=== PATIENT | male | born 1970 | race Caucasian/White ===

== ENCOUNTER → 2021-01-24 10:21 | Outpatient (CLI) | payer OTHER, SELFPAY ==
[2021-01-24 12:09] LABS: Hematocrit 45.7 % (41-53); Hemoglobin 15.4 g/dL (13.5-17.5); Mean Corpuscular HGB Conc 33.7 % (30-36); Mean Corpuscular Hemoglobin 28.9 PG (26-34); Mean Corpuscular Volume 85.9 fL (80-100); Platelet Count 210 X10^3/uL (150-400); Red Blood Cell Count 5.32 X10^6/uL (4.5-5.9); Red Cell Distribution Width 14.9 % (11.6-14.8); White Blood Cell Count 6.8 X10^3/uL (4.5-11.0)
[2021-01-24 12:21] LABS: BUN Creatinine Ratio 17.7 (6-22); Blood Urea Nitrogen 14 mg/dL (9-20); Calcium 9.8 mg/dL (8.4-10.2); Carbon Dioxide 26 mmol/L (22-32); Chloride 103 mmol/L (98-107); Cholesterol 263 mg/dL (140-199); Estimated Glomerular Filt Rate > 60.0 mL/min (>60); Glucose 109 mg/dL (70-100); HDL Cholesterol 63 mg/dL (40-60); HEMOLYSIS < 15 (0-50); LDL Cholesterol Calculated 182 mg/dL (<100); Potassium 4.5 mmol/L (3.4-5.1); Sodium 138 mmol/L (137-145); Triglycerides 91 mg/dL (35-150)
[2021-01-24 13:54] LABS: TSH w/ Reflex to FT4 4.84 uIU/mL (0.47-4.68)
[2021-01-24 14:31] LABS: Free T4, Direct Thyroxine 0.97 ng/dL (0.78-2.19)
[2021-01-24 14:54] LABS: Creatinine Urine Random 175.9 mg/dL
[2021-01-24 14:57] LABS: Microalbumi Creatinin Ratio Ur 8.5 ug/mg CR (<30); Microalbumin Urine Random 1.5 mg/dL (0-1.6)
[2021-01-24 15:00] LABS: Vitamin D 25 Hydroxy (D3) 19.3 ng/mL (30.0-100.0)
== END ==
PROVIDERS: PCP Student in an Organized Health Care Education/Training Program; Referring Provider Student in an Organized Health Care Education/Training Program; Visit Provider Student in an Organized Health Care Education/Training Program
DX: I10 Essential (primary) hypertension (principal); Z13.220 Encounter for screening for lipoid disorders; E55.9 Vitamin D deficiency, unspecified
CPT/HCPCS: 36415; 80048; 80061; 82043; 82306; 82570; 84439; 84443; 85027

== ENCOUNTER → 2021-06-04 14:36 | Outpatient (CLI) | payer OTHER, SELFPAY ==
--- NOTE | 2021-06-04 14:36 | DI.ECHO.S_ITS ---
[place] [facility]---------+ [facility] +---------+ : : [address] : : : : [id number] : : : : Phone: [phone]---------+ Echocardiogram Report + + :Name: AURELIO LYLES Study Date: 06/04/2021 Height: 70 in : :[facility] ReadingLocation: Weight: 205 lb : : Gender: Male BSA: 2.1 m2 : :: 1970 Age: 50 yrs BP: 159/101 mmHg: :Reason For Study: NEW HYPERTENSION : :Ordering Physician: JOSELO, : :MARTINA Performed By: Angeles Mace : :Referring: MARTINA JOSUE : + + Interpretation Summary Normal left ventricle size with ejection fraction 65-70%. Borderline dilated right ventricle with normal right ventricular systolic function. No valvular abnormality. Procedure: A two-dimensional transthoracic echocardiogram with color flow and Doppler was performed. The study quality was technically adequate. There is no prior echocardiogram noted for this patient. The patient was in sinus rhythm with heart rates between 72-80 bpm during the exam. Left Ventricle: The left ventricle is normal in size and wall thickness. The ejection fraction is estimated to be 65-70%. There are no focal wall motion abnormalities. Right Ventricle: The right ventricle is borderline dilated. The right ventricular systolic function is normal. Atria: The left atrial size is normal. Right atrial size is normal. There is no Doppler evidence for an interatrial shunt. Mitral Valve: The mitral valve is normal in structure and function. There is trace mitral regurgitation. Aortic Valve: The aortic valve is trileaflet. The aortic valve opens well. There is no aortic valve stenosis. No aortic regurgitation is present. Tricuspid Valve: The tricuspid valve is normal in structure and function. There is trace tricuspid regurgitation. Pulmonic Valve: The pulmonic valve leaflets are thin and pliable; valve motion is normal. There is trace pulmonic regurgitation. Great Vessels: The aortic root is normal size. The dimensions of the ascending aorta are normal. The inferior vena cava was not well visualized. Pericardium/ Pleura There is no pericardial effusion. There is no pleural effusion. MMode/2D Measurements & Calculations LVIDd: 4.8 cm LVOT diam: 2.1 cm LVIDs: 2.8 cm Ao root diam: 3.3 cm FS: 41.1 % asc Aorta Diam: 3.0 cm IVSd: 0.92 cm Ao Arch Diam (Prox Trans): 3.3 cm LVPWd: 0.85 cm LV yuen. diameter/BSA (cm/m^2): 2.3 LV sys. diameter/BSA (cm/m^2): 1.3 LA A2 area: 18.0 cm2 RA long axis: 4.5 cm LA A4 area: 15.9 cm2 RA area: 15.9 cm2 LA length (vol): 4.9 cm RA vol: 47.4 ml LA vol: 49.6 ml RA : 22.5 ml/m2 LA vol index: 23.5 ml/m2 RVD1 (basal): 4.1 cm TAPSE: 2.7 cm Doppler Measurements & Calculations Ao V2 max: 156.1 cm/sec LVOT Max Michael: 131.4 cm/sec Ao V2 mean: 105.6 cm/sec LV V1 max P.9 mmHg Ao max P.7 mmHg LV V1 VTI: 23.5 cm Ao mean P.1 mmHg YOEL(I,D): 2.6 cm2 Ao V2 VTI: 30.9 cm YOEL(V,D): 2.8 cm2 sev ratio: 0.76 OYEL indexed to BSA (cm^2/m^2): 1.2 MV E max michael: 83.1 cm/sec PA V2 max: 106.5 cm/sec MV A max michael: 62.7 cm/sec PA V2 mean: 71.0 cm/sec MV E/A: 1.3 PA mean P.3 mmHg Med Peak E' Michael: 9.7 cm/sec E/E' med: 8.6 Lat Peak E' Michael: 12.1 cm/sec E/E' lat: 6.8 E/e' average: 7.7 MV dec time: 0.21 sec SV(LVOT): 79.4 ml Electronically signed by: Coral Cole on Reading Physician:06/04/2021 04:06 PM
== END ==
PROVIDERS: PCP Student in an Organized Health Care Education/Training Program; Referring Provider Student in an Organized Health Care Education/Training Program; Visit Provider Student in an Organized Health Care Education/Training Program
DX: I10 Essential (primary) hypertension (principal)
CPT/HCPCS: 93306

== ENCOUNTER → 2021-07-02 09:08 | Outpatient (CLI) | payer OTHER, SELFPAY ==
[2021-07-02 10:39] LABS: COVID19 -Nasal RAPID Negative (Negative)
== END ==
PROVIDERS: PCP Student in an Organized Health Care Education/Training Program; Visit Provider Surgery
DX: Z01.812 Encounter for preprocedural laboratory examination (principal); Z20.822 Contact with and (suspected) exposure to COVID-19
CPT/HCPCS: 87635; C9803

== ENCOUNTER 2021-07-03 08:19 | Day surgery (SDC) | payer OTHER, SELFPAY ==
[2021-07-03] VITALS (7 sets, daily range): BP systolic 103–140; BP diastolic 62–89; PULSE 60–73; RESP 10–16; TEMP 36.2–36.8; O2SAT 92–98; BMI 28.5
--- NOTE | 2021-07-03 | PATH_ITS ---
[facility] Accession Number: [id number] . 01 Material submitted: . PART A: rectum - RECTUM PART B: colon - TRANSVERSE COLON . 02 Diagnosis: A. Rectum, Biopsy: Hyperplastic rectal mucosa. Negative for dysplasia and malignancy. . B. Transverse Colon, Biopsy: Tubular adenoma. Benign lymphoid aggregate. MRV 07/06/2021 1158 Local . 02 Electronically signed: . Diamond Ritter MD, Pathologist NPI- [id number] . 01 Gross description: . Part A: RECTUM: Received in formalin are 2 fragment(s) of mosher, soft tissue measuring 0.1 x 0.1 x 0.1 cm to 0.3 x 0.3 x 0.3 cm submitted entirely in 1 cassette(s) Part B: TRANSVERSE COLON: Received in formalin are 2 fragment(s) of mosher, soft tissue measuring 0.1 x 0.1 x 0.1 cm to 0.5 x 0.5 x 0.4 cm submitted entirely in 1 cassette(s) /DEMETRIO 07/05/2021 0151 Local . 02 Pathologist provided ICD-10: D12.3 . 02 CPT . 992033, [id number] Specimen Comment: A courtesy copy of this report has been sent to [phone] Performed at: 01 [facility] Cytology [address] [facility] [place], [place], [place] [id number] MD Spencer Herman MD Phone: [phone] Performed at: 02 [facility] [address] [place], [place] [id number] MD Diamond Ritter MD Phone: [phone]
[2021-07-03] MEDS: LACTATED RINGERS 1,000 ML 200 ML IV (08:45)
--- NOTE | 2021-07-03 08:50 | PM.HP.1 ---
History of Present Illness History of Present Illness Date Patient Seen: 07/03/21 Time Patient Seen: 08:50 Chief complaint: SDC Narrative: The patient presents for colorectal sreening. They have never had any previous examination for such. No personal or family history of colon cancer. On further history denies any recent gastrointestinal symptoms. No nausea, vomiting, abdominal pain, loss of appetite, unexplained weight loss, change in bowel habits, diarrhea, constipation, melena, hematochezia, or bright red blood per rectum. Patient History Family & Social History Social History: household members spouse Tobacco & Substance use: Smoking Status Former smoker alcohol intake never Substance Use Type does not use Meds Home Medications and Allergies Home Medications Medication Instructions Recorded Confirmed Type lisinopril 20 mg tablet 20 mg PO DAILY #90 tab 02/28/21 07/03/21 Rx Allergies Allergy/AdvReac Type Severity Reaction Status Date / Time No Known Drug Allergies Allergy Unverified 01/24/21 09:39 Exam Vital Signs (past 8 hours): - 07/03/21 08:38 Temperature 97.8 F Pulse Rate 60 Respiratory Rate 14 Blood Pressure 140/89 Pulse Oximetry 98 Oxygen Delivery Method Room Air Narrative Exam Narrative: GENERAL: Adult male in no apparent distress HEENT: No scleral icterus CV: Regular rate, no peripheral edema LUNGS: No increased work of breathing. Patient speaks in full sentences without oxygen support. ABDOMEN: Soft, non-tender, non-distended NEURO: Nonfocal, normal strength throughout, SKIN: Warm and dry Assessment & Plan Assessment & Plan narrative: The patient requires colorectal screening and colonoscopy is recommended. Technical details were discussed. Risks, benefits, alternatives explained. Risks including but not limited to myocardial infarction, aspiration, bleeding, pain, missed lesion, incomplete examination, need for further radiographic studies, colonic perforation, and need for major abdominal surgery were discussed. All questions were answered to their satisfaction, and they are in agreement with this plan. Time Spent With Patient Critical Care time: I spent a total of [] minutes of critical care time on this patient's care today; this time is exclusive of procedural time.
[2021-07-03] MEDS: fentaNYL 250 MCG/5 ML INJ IV (08:53)
[2021-07-03] MEDS: MIDAZOLAM 5 MG/5 ML VIAL IV (08:54)
--- NOTE | 2021-07-03 09:16 | PM.OP.COLON ---
Operative Date/Time/Diagnoses Date of procedure: 07/03/21 Time of procedure: 09:16 Pre-op diagnosis: Screening colonoscopy Post-op diagnosis: same Procedure & Clinicians Study performed: Colonoscopy Same procedure as scheduled: Yes Indications: Screening Surgeon: Javid Santoyo Procedure Notes Procedure in detail: Medications: Conscious sedation using 9mg IV midazolam and 150 mcg IV of fentanyl The history and physical was performed/updated and the patient is ASA class is 2. The procedure was discussed in detail with the patient. Potential risks complications including infection, bleeding, missed diagnosis, perforation, need for surgery, and were explained. Their questions were answered and informed consent was obtained. Patient was brought to the procedure room and placed standard monitoring equipment. The patient's vital signs were monitored continuously throughout the entire procedure. Prior to starting time-out was performed. The patient was placed in the left lateral recumbent position. Procedural sedation was administered. Examination began with a thorough inspection of the perianal area there was no evidence of fissures, fistulae, external hemorrhoids or cutaneous malignancy. The colonoscopy scope was then placed into the anal canal and was advanced to the cecum, which was identified by the ileocecal valve, the appendiceal orifice and the confluence of the taenia. The scope was then slowly withdrawn examining colon thoroughly in all directions, irrigating it of any residual stool. FINDINGS 1. Rectal polyp 5 mm removed with biopsy forceps 2. Transverse polyp 5 mm removed with biopsy forceps The patient tolerated the procedure well. They will be discharged once criteria are met. The prep was of good/excellent quality. The withdrawl time was 6 minutes. The sedation time was 14 minutes. Specimen(s): other (Rectal and transverse colon polyps) Complications: none Impression: Colonic polyps x2 Post-procedure Recommendations: Colonoscopy in 3 years Disposition: same day surgery
--- NOTE | 2021-07-03 10:47 | SUR.PHASEII ---
Patient was wheeled out by Mary BANDA, discussed the discharged plan with the patient and spouse via phone
== END 2021-07-03 10:09 | disposition home or self-care (01) ==
PROVIDERS: PCP Student in an Organized Health Care Education/Training Program; Referring Provider Surgery; Visit Provider Surgery
PROC: 0DJD8ZZ Inspection of Lower Intestinal Tract, Via Natural or Artificial Opening Endoscopic (ICD-10-PCS; CPT 45378; principal; 2021-07-03 09:15)
DX: Z12.11 Encounter for screening for malignant neoplasm of colon (principal); D12.3 Benign neoplasm of transverse colon
CPT/HCPCS: 45380; 99152; J2250; J3010

== ENCOUNTER → 2022-08-07 16:34 | Outpatient (CLI) | payer OTHER, SELFPAY ==
--- NOTE | 2022-08-07 16:37 | DI.RAD.S_ITS ---
PROCEDURE: XR CHEST 2V INDICATIONS: Cough TECHNIQUE: 2 views of the chest were acquired. COMPARISON: None. FINDINGS: Surgical changes and devices: None. Lungs and pleura: Lungs are clear. No pleural effusions or pneumothorax. Mediastinum: Mediastinal contours are normal. Heart size is normal. Bones and chest wall: No suspicious bony abnormalities. Soft tissues appear unremarkable. IMPRESSION: No acute cardiopulmonary process demonstrated radiographically. Dictated by: Senthil Roberson M.D. on 08/07/2022 at 17:02 Approved by: Senthil Roberson M.D. on 08/07/2022 at 17:02
== END ==
PROVIDERS: PCP Student in an Organized Health Care Education/Training Program; Referring Provider Nurse Practitioner Family; Visit Provider Nurse Practitioner Family
DX: R05.9 Cough, unspecified (principal)
CPT/HCPCS: 71046

== ENCOUNTER → 2022-10-24 09:54 | Outpatient (CLI) | payer OTHER, SELFPAY ==
[2022-10-24 10:38] LABS: Alanine Aminotransferase 95 IU/L (<50); Albumin 4.4 g/dL (3.5-5.0); Albumin Globulin Ratio 1.2 (1.0-2.8); Alkaline Phosphatase 127 U/L (38-126); Aspartate Aminotransferase 40 IU/L (17-59); BUN Creatinine Ratio 18.2 (6-22); Bilirubin Total 0.4 mg/dL (0.2-1.3); Blood Urea Nitrogen 12 mg/dL (9-20); C-Reactive Protein Quant 1.9 mg/dL (<1.0); Calcium 9.5 mg/dL (8.4-10.2); Carbon Dioxide 23 mmol/L (22-32); Chloride 104 mmol/L (98-107); Creatine Kinase 64 U/L (55-170); Estimated Glomerular Filt Rate > 60 mL/min (>60); Globulin 3.6 g/dL (1.7-4.1); Glucose 109 mg/dL (70-100); HEMOLYSIS < 15 (0-50); Potassium 4.5 mmol/L (3.4-5.1); Sodium 138 mmol/L (137-145)
[2022-10-24 10:45] LABS: Hematocrit 42.6 % (41-53); Hemoglobin 14.6 g/dL (13.5-17.5); Mean Corpuscular HGB Conc 34.2 % (30-36); Mean Corpuscular Hemoglobin 27.3 PG (26-34); Mean Corpuscular Volume 79.9 fL (80-100); Platelet Count 264 X10^3/uL (150-400); Red Blood Cell Count 5.34 X10^6/uL (4.5-5.9); Red Cell Distribution Width 13.9 % (11.6-14.8); White Blood Cell Count 7.3 X10^3/uL (4.5-11.0)
[2022-10-24 10:56] LABS: Rheumatoid Factor 410.2 IU/mL (<12.0)
[2022-10-24 11:09] LABS: TSH w/ Reflex to FT4 2.96 uIU/mL (0.47-4.68)
[2022-10-24 11:34] LABS: Erythrocyte Sedimentation Rate 45 MM/HR (0-15)
== END ==
PROVIDERS: PCP Pediatrics; Referring Provider Nurse Practitioner Family; Visit Provider Nurse Practitioner Family
DX: E03.8 Other specified hypothyroidism (principal); M25.50 Pain in unspecified joint; M79.10 Myalgia, unspecified site; R63.5 Abnormal weight gain
CPT/HCPCS: 36415; 80053; 82550; 84443; 85027; 85651; 86140; 86430

== ENCOUNTER → 2022-10-24 16:16 | Outpatient (CLI) | payer OTHER, SELFPAY ==
--- NOTE | 2022-10-24 16:18 | DI.RAD.S_ITS ---
PROCEDURE: XR HAND RT MIN 3V INDICATIONS: inflammatory joint TECHNIQUE: 3 views of the hand(s) acquired. COMPARISON: None. FINDINGS: Bones: No fractures or dislocations. Carpal bones are normally aligned. No suspicious bony lesions. Nonspecific subchondral lucency in the 1st carpal bone may potentially indicate a inflammatory arthritis. No periarticular osteopenia. There is also a nonspecific subchondral lucency in the head of the 2nd metacarpal, which may potentially be related to an inflammatory arthritis. There is also a subtle subchondral lucency in the head of the proximal phalanx of the thumb which may also be related to an inflammatory arthritis. Soft tissues: No suspicious soft tissue calcifications. IMPRESSION: Multiple nonspecific subchondral lucencies may potentially indicate the presence of an inflammatory arthritis. Dictated by: Efren Bullard M.D. on 10/24/2022 at 23:03 Approved by: Efren Bullard M.D. on 10/24/2022 at 23:05
--- NOTE | 2022-10-24 16:18 | DI.RAD.S_ITS ---
PROCEDURE: XR HAND LT MIN 3V INDICATIONS: inflammatory joint TECHNIQUE: 3 views of the hand(s) acquired. COMPARISON: None. FINDINGS: Bones: No fractures or dislocations. Carpal bones are normally aligned. No suspicious bony lesions. There is a benign bubbly lesion of the lateral cortex of the proximal shaft of the middle phalanx of the 3rd finger, at a distance from the joint, likely unrelated to inflammatory arthritis. There is a very subtle subchondral lucency in the scaphoid near the triscaphe joint and articulation with the capitate, possibly representing evidence of inflammatory arthritis. There is no periarticular osteopenia. Soft tissues: No suspicious soft tissue calcifications. IMPRESSION: 1. Benign bubbly lesion of the middle phalanx of the 3rd finger. This may potentially represent an incidental enchondroma. 2. Nonspecific subchondral lucency in the scaphoid may potentially represent early findings of an inflammatory arthritis. Dictated by: Efren Bullard M.D. on 10/24/2022 at 23:06 Approved by: Efren Bullard M.D. on 10/24/2022 at 23:09
== END ==
PROVIDERS: PCP Pediatrics; Referring Provider Nurse Practitioner Family; Visit Provider Nurse Practitioner Family
DX: M19.042 Primary osteoarthritis, left hand (principal); M19.041 Primary osteoarthritis, right hand; E03.8 Other specified hypothyroidism; M25.50 Pain in unspecified joint; M79.10 Myalgia, unspecified site; R63.5 Abnormal weight gain
CPT/HCPCS: 36415; 73130; 80053; 82550; 84443; 85027; 85651; 86140; 86430

== ENCOUNTER 2022-12-05 08:46 | Day surgery (SDC) | payer OTHER, SELFPAY ==
--- NOTE | 2022-12-05 | PATH_ITS ---
[facility] Accession Number: [id number] No. of containers..02 Tissue . 01 Material submitted: . PART A: duodenum - DUODENUM BIOPSY PART B: stomach - ANTRUM . 01 Diagnosis: A. Duodenum, Biopsy: Duodenal mucosa with no diagnostic abnormality. Negative for active inflammation, features of sprue, dysplasia, or malignancy. . B. Gastric Antrum, Biopsy: Gastric antral mucosa with no diagnostic abnormality. No evidence of Helicobacter organisms on H/E stain. Negative for intestinal metaplasia. Negative for dysplasia or malignancy. MRV 12/12/2022 1313 Local . 01 Electronically signed: . Vaughn Mao MD, PhD, Pathologist NPI- [id number] . 01 Gross description: . Part A: DUODENUM BIOPSY: Received in formalin are 2 fragment(s) of mosher, soft tissue measuring 0.2 x 0.2 x 0.2 cm to 0.3 x 0.2 x 0.2 cm submitted entirely in 1 cassette(s) Part B: ANTRUM : Received in formalin are 3 fragment(s) of mosher, soft tissue measuring 0.1 x 0.1 x 0.1 cm to 0.4 x 0.3 x 0.2 cm submitted entirely in 1 cassette(s) /DEMETRIO 12/10/2022 1920 Local . 01 Pathologist provided ICD-10: R10.13 . 01 CPT . 348651, 780965 Specimen Comment: A courtesy copy of this report has been sent to [phone] Performed at: 01 [facility] Cyt[facility] [address] [place] [address] [address] [facility], [place], [place] [id number] MD Spencer Herman MD Phone: [phone]
[2022-12-05 09:10] VITALS: BP 157/96; PULSE 75; RESP 17; TEMP 36.2; O2SAT 96; BMI 31.5
[2022-12-05] MEDS: LACTATED RINGERS 1,000 ML 42 ML IV (09:20)
--- NOTE | 2022-12-05 10:13 | PM.HP.1 ---
History of Present Illness History of Present Illness Date Patient Seen: 12/05/22 Time Patient Seen: 10:13 Chief complaint: SDC Narrative: Esdras is a 52-year-old man with history of reflux was taking NSAIDs up until recently. He has recently been diagnosed with rheumatoid arthritis. Please see my office note October for more details. [facility] Medical History (Updated 12/02/22 @ 07:10 by Eliecer Hou MD) Gastroesophageal reflux disease Rheumatoid arthritis flare Social History household members: spouse Smoking Status: Former smoker alcohol intake: never Meds Home Medications and Allergies Home Medications Medication Instructions Recorded Confirmed Type duloxetine 20 mg capsule,delayed 20 mg PO DAILY #90 caps 11/28/22 12/05/22 Rx release (Cymbalta) folic acid 1 mg tablet 1 mg PO DAILY 11/28/22 12/05/22 History methotrexate sodium 2.5 mg tablet See Rx Instructions PO QWEEK 11/28/22 12/05/22 History multivitamin 1 tab PO DAILY 11/28/22 12/05/22 History naproxen sodium 220 mg capsule 220 mg PO BID 11/28/22 12/05/22 History (Aleve) omeprazole magnesium 20 mg 20 mg PO DAILY GERD #90 tabs 11/28/22 12/05/22 Rx tablet,delayed release (Prilosec OTC) prednisone 5 mg tablets in a dose See Rx Instructions PO PER PKG DIR 11/28/22 12/05/22 History pack Allergies Allergy/AdvReac Type Severity Reaction Status Date / Time No Known Drug Allergies Allergy Verified 12/05/22 09:05 Exam Vital Signs (past 8 hours): - 12/05/22 09:10 Temperature 97.2 F L Pulse Rate 75 Respiratory Rate 17 Blood Pressure 157/96 H Pulse Oximetry 96 Oxygen Delivery Method Room Air Oxygen Delivery Method Room Air Const General: healthy appearing Assessment & Plan Assessment and plan (1) Gastroesophageal reflux disease: Qualifiers: Esophagitis presence: without esophagitis Qualified Code(s): K21.9 - Gastro-esophageal reflux disease without esophagitis Status: Acute Plan Plan to proceed with esophagogastroduodenoscopy. We reviewed the risks and benefits and would like to proceed.
--- NOTE | 2022-12-05 10:33 | PM.OP.EGD ---
Operative Date/Time/Diagnoses Date of procedure: 12/05/22 Time of procedure: 10:33 Pre-op diagnosis: GERD Post-op diagnosis: same Procedure & Clinicians Study performed: Esophagogastroduodenoscopy Same procedure as scheduled: Yes Surgeon: Eliecer Mary Procedure Notes Procedure in detail: Surgeon: Eliecer Mary MD Anesthesia: Indra Monroy timeout was performed. A bite blocked was placed. The patient was positioned in the left lateral decubitus position. Anesthesia was administered. The endoscope was inserted through the bite block and passed through the esophagus and stomach and into the duodenum. The duodenal mucosa appeared normal. Random biopsies were taken from the second portion of the duodenum. The scope was withdrawn into the duodenal bulb and no abnormalities were seen. The scope was withdrawn into the stomach. No abnormalities were seen in the stomach. Random biopsies were taken from the antrum. The rest of the stomach was normal. The scope was retroflexed and hiatal hernia was seen. The scope was withdrawn into the esophagus and no other abnormalities were seen. The remainder of the esophagus was normal. The scope was withdrawn. The patient was awakened and brought to recovery. Sedation time: 5 minutes Findings: Grossly normal EGD Post-procedure Disposition: PACU
[2022-12-05 10:37] VITALS: BP 131/93; PULSE 92; RESP 16; TEMP 36.6; O2SAT 94
[2022-12-05 10:44] VITALS: BP 119/81; PULSE 80; RESP 19; TEMP 36.6; O2SAT 95
== END 2022-12-05 11:15 | disposition home or self-care (01) ==
PROVIDERS: PCP Pediatrics; Referring Provider Surgery; Visit Provider Surgery
PROC: 0DJ08ZZ Inspection of Upper Intestinal Tract, Via Natural or Artificial Opening Endoscopic (ICD-10-PCS; CPT 43235; principal; 2022-12-05 10:00)
DX: K21.9 Gastro-esophageal reflux disease without esophagitis (principal); K44.9 Diaphragmatic hernia without obstruction or gangrene; M06.9 Rheumatoid arthritis, unspecified; Z87.891 Personal history of nicotine dependence
CPT/HCPCS: 43239; J2704

== ENCOUNTER → 2023-01-13 08:13 | Outpatient (CLI) | payer OTHER, SELFPAY ==
--- NOTE | 2023-01-13 08:14 | DI.ECHO.S_ITS ---
[facility]---------[facility] +---------+ : : [address] : : : : [phone] : : : : Phone: [phone]---------+ Echocardiogram Report + + :Name: AURELIO LYLES Study Date: 01/13/2023 Height: 70 in : :[facility] ReadingLocation: Weight: 210 lb : : Gender: Male BSA: 2.1 m2 : :: 1970 Age: 52 yrs BP: 151/98 mmHg: :Reason For Study: Rheumatoid Arthritis : :Ordering Physician: MANNIE, : :DORI Coe Performed By: Janel Dickerson : :Referring: DORI CHAND : + + Interpretation Summary Normal left ventricle size with ejection fraction 65-70%. Borderline dilated right ventricle with normal right ventricular systolic function. Mild mitral regurgitation. Comparison is made with the echocardiogram of 06/04/2021, there has been no significant change. Procedure: A two-dimensional transthoracic echocardiogram with color flow and Doppler was performed. The study quality was technically adequate. Comparison is made with the echocardiogram of 06/04/2021. The patient was in normal sinus rhythm during the exam. Left Ventricle: The left ventricle is normal in size. The ejection fraction is estimated to be 60-65%. There are no focal wall motion abnormalities. Diastolic parameters suggest probable normal left ventricular diastolic function and normal filling pressures. Right Ventricle: The right ventricle is borderline dilated. The right ventricular systolic function is normal. Atria: The left atrial size is normal. Right atrial size is normal. There is no Doppler evidence for an interatrial shunt. Mitral Valve: The mitral valve is normal in structure and function. There is no mitral valve stenosis. There is mild mitral regurgitation. Aortic Valve: The aortic valve is trileaflet. The aortic valve opens well. There is no aortic valve stenosis. There is trace aortic regurgitation. Tricuspid Valve: The tricuspid valve leaflets are thin and pliable. There is no tricuspid stenosis. There is trace tricuspid regurgitation. The right ventricular systolic pressure is estimated to be at least 27 mmHg based on an estimated right atrial pressure of 3 mm Hg. Pulmonic Valve: The pulmonic valve leaflets are thin and pliable; valve motion is normal. There is no pulmonic valvular stenosis. There is trace pulmonic regurgitation. Great Vessels: The aortic root is normal size. The ascending aorta is normal in size. The pulmonary artery is normal size. The inferior vena cava was not well visualized. Pericardium/ Pleura There is no pericardial effusion. There is no pleural effusion. MMode/2D Measurements & Calculations LVIDd: 4.8 cm LVOT diam: 1.9 cm LVIDs: 3.2 cm Ao root diam: 2.5 cm FS: 33.3 % asc Aorta Diam: 3.0 cm IVSd: 0.80 cm LVPWd: 0.70 cm LV yuen. diameter/BSA (cm/m^2): 2.3 LV sys. diameter/BSA (cm/m^2): 1.5 LA A2 area: 20.4 cm2 RA long axis: 5.1 cm LA A4 area: 18.4 cm2 RA area: 18.3 cm2 LA length (vol): 5.6 cm RA vol: 56.5 ml LA vol: 56.5 ml RA : 26.5 ml/m2 LA vol index: 26.5 ml/m2 RVD1 (basal): 4.3 cm LVLs ap4: 6.3 cm LVLd ap2: 8.1 cm TAPSE_phl: 2.4 cm LVLs ap2: 6.4 cm Doppler Measurements & Calculations Ao V2 max: 147.7 cm/sec LVOT Max Michael: 133.3 cm/sec Ao V2 mean: 98.5 cm/sec LV V1 max P.1 mmHg Ao max P.0 mmHg LV V1 VTI: 27.7 cm Ao mean P.3 mmHg YOEL(I,D): 2.3 cm2 Ao V2 VTI: 34.0 cm YOEL(V,D): 2.6 cm2 sev ratio: 0.82 YOEL indexed to BSA (cm^2/m^2): 1.1 MV E max michael: 109.0 cm/sec TR max michael: 243.0 cm/sec MV A max michael: 79.7 cm/sec TR max P.6 mmHg MV E/A: 1.4 PA V2 max: 98.8 cm/sec Med Peak E' Michael: 10.7 cm/sec PA V2 mean: 65.7 cm/sec E/E' med: 10.2 PA mean P.0 mmHg Lat Peak E' Michael: 11.7 cm/sec PA pr(Accel): 29.0 mmHg E/E' lat: 9.3 E/e' average: 9.8 MV dec time: 0.15 sec SV(LVOT): 78.6 ml AV VR_phl: 0.90 YOEL(VTI)/BSA_phl: 1.1 Electronically signed by: Coral Cole on Reading Physician:01/13/2023 12:59 PM
== END ==
PROVIDERS: PCP Pediatrics; Referring Provider Pediatrics; Visit Provider Pediatrics
DX: I34.0 Nonrheumatic mitral (valve) insufficiency (principal); M06.9 Rheumatoid arthritis, unspecified
CPT/HCPCS: 93306

== ENCOUNTER → 2023-01-21 08:49 | Outpatient (CLI) | payer OTHER, SELFPAY ==
[2023-01-21 10:04] LABS: Hemoglobin A1C% w Est Avg Glu 5.9 % (4.0-6.0)
[2023-01-21 10:05] LABS: Erythrocyte Sedimentation Rate 5 MM/HR (0-15)
[2023-01-21 10:12] LABS: C-Reactive Protein Quant 1.4 mg/dL (<1.0)
[2023-01-21 11:45] LABS: Creatinine Urine Random 294.4 mg/dL
[2023-01-21 11:51] LABS: Microalbumi Creatinin Ratio Ur 7.4 ug/mg CR (<30); Microalbumin Urine Random 2.2 mg/dL (0-1.6)
== END ==
PROVIDERS: PCP Pediatrics; Referring Provider Pediatrics; Visit Provider Pediatrics
DX: M05.9 Rheumatoid arthritis with rheumatoid factor, unspecified (principal); I10 Essential (primary) hypertension
CPT/HCPCS: 36415; 82043; 82570; 83036; 85651; 86140

== ENCOUNTER → 2023-04-16 16:45 | Outpatient (CLI) | payer OTHER, SELFPAY ==
[2023-04-16 17:58] LABS: Cholesterol 304 mg/dL (140-199); HDL Cholesterol 43 mg/dL (40-60); Triglycerides 497 mg/dL (35-150)
[2023-04-16 17:59] LABS: Albumin 4.3 g/dL (3.5-5.0); BUN Creatinine Ratio 18.6 (6-22); Blood Urea Nitrogen 13 mg/dL (9-20); Calcium 10.3 mg/dL (8.4-10.2); Carbon Dioxide 24 mmol/L (22-32); Chloride 103 mmol/L (98-107); Estimated Glomerular Filt Rate > 60 mL/min (>60); Glucose 90 mg/dL (70-100); HEMOLYSIS < 15 (0-50); Phosphorous 3.6 mg/dL (2.5-4.5); Potassium 4.2 mmol/L (3.4-5.1); Sodium 134 mmol/L (137-145)
[2023-04-16 18:27] LABS: Prostate Specific Antigen Scrn 1.74 ng/mL (0.1-4.0)
== END ==
PROVIDERS: Internal Medicine Rheumatology; PCP Internal Medicine; Referring Provider Internal Medicine; Visit Provider Internal Medicine
DX: Z00.00 Encounter for general adult medical examination without abnormal findings (principal); Z79.899 Other long term (current) drug therapy; Z12.5 Encounter for screening for malignant neoplasm of prostate
CPT/HCPCS: 36415; 80061; 80069; G0103

== ENCOUNTER → 2023-04-30 13:15 | Outpatient (CLI) | payer OTHER, SELFPAY ==
--- NOTE | 2023-04-30 13:30 | DI.US.S_ITS ---
PROCEDURE: US ABDOMEN LIMITED INDICATIONS: ABNORMAL LFTS TECHNIQUE: Real-time scanning was performed of the abdominal and retroperitoneal organs, with image documentation. COMPARISON: None. FINDINGS: Liver: The liver is mildly enlarged at 17.3 cm. The liver is mildly increased in echogenicity. Gallbladder: Within normal limits. No gallstones or gallbladder wall thickening. Biliary ducts: Intrahepatic bile ducts are non-dilated. Extrahepatic bile duct caliber measures 4.9 mm. Normal is 6-7 mm or less in diameter, or 10 mm or less post-cholecystectomy. Pancreas: Visualized portions of the pancreas are sonographically normal. Pancreatic tail is not well seen. IMPRESSION: 1. Mild hepatomegaly. Increased hepatic echogenicity noted possibly related to hepatic steatosis but other sources of hepatocellular disease or hepatic cirrhosis cannot be excluded. Recommend clinical correlation. 2. Gallbladder is within normal limits. No biliary ductal dilatation. Dictated by: Hayder Rao M.D. on 05/01/2023 at 10:49 Approved by: Hayder Rao M.D. on 05/01/2023 at 10:55
== END ==
PROVIDERS: PCP Internal Medicine; Referring Provider Internal Medicine; Visit Provider Internal Medicine
DX: R16.0 Hepatomegaly, not elsewhere classified (principal); R79.89 Other specified abnormal findings of blood chemistry
CPT/HCPCS: 76705

== ENCOUNTER → 2024-10-28 12:25 | Outpatient (CLI) | payer OTHER, SELFPAY ==
[2024-10-28 13:15] LABS: Add Manual Diff / Slide Review NO; Basophils Absolute Auto 100 /uL (0-100); Basophils Percent Auto 1.1 % (0-2); Eosinophils Absolute Auto 200 /uL (0-450); Eosinophils Percent Auto 3.8 % (2-4); Hematocrit 44.2 % (41-53); Hemoglobin 14.9 g/dL (13.5-17.5); Lymphocytes Absolute Auto 1600 /uL (1100-4500); Lymphocytes Percent Auto 27.9 % (25-40); Mean Corpuscular HGB Conc 33.6 % (30-36); Mean Corpuscular Hemoglobin 29.8 PG (26-34); Mean Corpuscular Volume 88.9 fL (80-100); Monocytes Absolute Auto 400 /uL (0-900); Monocytes Percent Auto 7.1 % (3-14); Neutrophils Absolute Auto 3400 /uL (1500-7000); Neutrophils Percent Auto 60.1 % (50-75); Platelet Count 248 X10^3/uL (150-400); Red Blood Cell Count 4.98 X10^6/uL (4.5-5.9); Red Cell Distribution Width 14.5 % (11.6-14.8); White Blood Cell Count 5.6 X10^3/uL (4.5-11.0)
[2024-10-28 13:39] LABS: Alanine Aminotransferase 28 IU/L (<50); Albumin 4.8 g/dL (3.5-5.0); Albumin Globulin Ratio 1.7 (1.0-2.8); Alkaline Phosphatase 76 U/L (38-126); Aspartate Aminotransferase 24 IU/L (17-59); BUN Creatinine Ratio 12.7 (6-22); Bilirubin Total 0.5 mg/dL (0.2-1.3); Blood Urea Nitrogen 9 mg/dL (9-20); Calcium 9.6 mg/dL (8.4-10.2); Carbon Dioxide 22 mmol/L (22-32); Chloride 104 mmol/L (98-107); Estimated Glomerular Filt Rate > 60 mL/min (>60); Globulin 2.8 g/dL (1.7-4.1); Glucose 97 mg/dL (70-99); HEMOLYSIS < 15 (0-50); Potassium 4.3 mmol/L (3.4-5.1); Sodium 137 mmol/L (137-145); Total Protein 7.6 g/dL (6.3-8.2)
== END ==
PROVIDERS: PCP Internal Medicine
DX: Z79.899 Other long term (current) drug therapy (principal)
CPT/HCPCS: 36415; 80053; 85025

== ENCOUNTER → 2025-02-11 13:02 | Outpatient (CLI) | payer OTHER, SELFPAY ==
[2025-02-11 13:23] LABS: Add Manual Diff / Slide Review NO; Hematocrit 45.4 % (41-53); Hemoglobin 15.5 g/dL (13.5-17.5); Lymphocytes Absolute Auto 1100 /uL (1100-4500); Mean Corpuscular HGB Conc 34.1 % (30-36); Mean Corpuscular Hemoglobin 30.7 PG (26-34); Mean Corpuscular Volume 90.0 fL (80-100); Platelet Count 254 X10^3/uL (150-400)
[2025-02-11 13:57] LABS: Alanine Aminotransferase 48 IU/L (<50); Albumin 4.7 g/dL (3.5-5.0); Albumin Globulin Ratio 1.7 (1.0-2.8); Alkaline Phosphatase 65 U/L (38-126); Blood Urea Nitrogen 15 mg/dL (9-20); Calcium 10.1 mg/dL (8.4-10.2); Carbon Dioxide 23 mmol/L (22-32); Chloride 104 mmol/L (98-107); Cholesterol 295 mg/dL (140-199); Estimated Glomerular Filt Rate > 60 mL/min (>60); Globulin 2.8 g/dL (1.7-4.1); Glucose 89 mg/dL (70-99); HDL Cholesterol 70 mg/dL (40-60); HEMOLYSIS < 15 (0-50); Potassium 4.4 mmol/L (3.4-5.1); Sodium 137 mmol/L (137-145); Total Protein 7.5 g/dL (6.3-8.2); Triglycerides 187 mg/dL (35-150)
== END ==
LOC: LAB 13:07
PROVIDERS: Student in an Organized Health Care Education/Training Program; PCP Internal Medicine; Referring Provider Internal Medicine; Visit Provider Internal Medicine
DX: M05.79 Rheumatoid arthritis with rheumatoid factor of multiple sites without organ or systems involvement (principal); Z79.899 Other long term (current) drug therapy
CPT/HCPCS: 36415; 80053; 80061; 85025

== ENCOUNTER → 2025-04-12 12:36 | Outpatient (CLI) | payer OTHER, SELFPAY | PROVIDERS: PCP Internal Medicine; Referring Provider Internal Medicine; Visit Provider Internal Medicine | DX: R53.83 Other fatigue (principal); E66.9 Obesity, unspecified; E78.2 Mixed hyperlipidemia; R79.89 Other specified abnormal findings of blood chemistry | CPT/HCPCS: 36415; 84403 ==